=== PATIENT | male | born 1935 | race African-American/Black ===

== ENCOUNTER 2021-08-06 20:52 | Emergency (ER) | payer MEDICARE ==
[~2021-08-06] VITALS: Ht 175.3 cm; Wt 56.8 kg
[~2021-08-06 20:52] MED LIST: ATROVENT HFA17 MCG IN; BACITRACIN1 GM OD; CLOTRIMAZOLE1 % TOP; COUMADIN3 MG PO; COZAAR100 MG PO; DOCUSATE SOD100 MG OR; METOPROL TAR100 MG PO; METOPROLOL50 MG PO; NYSTATIN100000 M3 TOP; OCULAR LUBRICANT OD; PROCTOSOL HC2.5 % TOP; SAW PALMETTO160 M1 OR; VENTOLIN HF1 IN; VENTOLIN HFA IN; ZOCOR20 MG PO
[2021-08-06 21:39] LABS: IMMATURE GRANULOCYTES 0.8 % (0.0-5.0); MEAN CELL VOLUME 81.9 fL CALC (80.0-100.0); MEAN CORPUSCULAR HGB 27.2 pG CALC (26.0-32.0); MEAN CORPUSCULAR HGB CONC 33.2 g/dL CAL (32.0-36.0); NEUT# 5.75 thou/uL (1.82-7.42); RED BLOOD COUNT 4.19 mill/uL (4.70-6.10); RED CELL DISTRI WIDTH 15.8 % (11.5-15.5)
[2021-08-06 21:40] LABS: HEMATOCRIT 34.3 % (39.0-50.0); HEMOGLOBIN 11.4 g/dl (14.0-18.0)
[2021-08-06 21:59] LABS: ALBUMIN 3.5 g/dL (3.2-5.0); ALKALINE PHOSPHATASE 77 u/l (38-126); ANION GAP 11 (6-22 (CALC)); BILIRUBIN, TOTAL 0.9 mg/dL (0.0-1.4); BUN 19 mg/dL (8-23); BUN/CREATININE RATIO 16 (12-20 (CALC)); CARBON DIOXIDE 28 mmol/l (22-30); CHLORIDE 101 mmol/l (95-108); CPK 116 u/l (52-200); CREATININE 1.2 mg/dL (0.7-1.3); GFR 57 ML/MIN (>=60 (CALC)); GFR FOR AFR.AMER. > 60 ML/MIN (>=60 (CALC)); LIPASE 163 u/l (23-300); MAGNESIUM 1.7 mg/dL (1.6-2.3); POTASSIUM 3.7 mmol/l (3.5-5.1); SGOT/AST 18 u/l (19-48); SODIUM 137 mmol/l (137-146); TOTAL PROTEIN 7.1 g/dL (6.3-8.2)
[2021-08-06 22:00] LABS: ACT PARTIAL THROMBO TIME 74.6 SECONDS (20.0-32.5)
[2021-08-06 22:02] LABS: INTERNATIONAL NORMALIZED RATIO 1.5 RATIO (0.7-1.3); PROTHROMBIN TIME 15.8 SECONDS (9.0-12.5)
[2021-08-06 22:03] LABS: URINE BILIRUBIN - DIPSTICK NEGATIVE (NEGATIVE); URINE BLOOD DIPSTICK NEGATIVE (NEGATIVE); URINE COLOR YELLOW; URINE GLUCOSE - DIPSTICK NEGATIVE (NEGATIVE); URINE KETONE NEGATIVE (NEGATIVE); URINE LEUK ESTERASE NEGATIVE (NEGATIVE); URINE PROTEIN - DIPSTICK NEGATIVE (NEG-TRACE); URINE UROBILINOGEN - DIPSTICK 0.2 E.U./dL (0.2)
[2021-08-06 22:05] LABS: URINE NITRITE - DIPSTICK NEGATIVE (Negative)
[2021-08-06] MEDS ORDERED: AMOX/K CLAV875 M1 PO (23:24)
[2021-08-07 09:18] VITALS: BP 176/92
== END 2021-08-07 09:18 | disposition home or self-care (01) ==
LOC: ED 20:52
DX: J18.9 Pneumonia, unspecified organism (principal); M54.6 Pain in thoracic spine; M54.50 Low back pain, unspecified; I69.954 Hemiplegia and hemiparesis following unspecified cerebrovascular disease affecting left non-dominant side; W05.0XXA Fall from non-moving wheelchair, initial encounter; Y92.009 Unspecified place in unspecified non-institutional (private) residence as the place of occurrence of the external cause; Z91.81 History of falling; Z85.46 Personal history of malignant neoplasm of prostate; Z20.822 Contact with and (suspected) exposure to COVID-19

== ENCOUNTER 2022-01-06 18:10 | Inpatient (IN) | payer MEDICARE ==
[~2022-01-06] VITALS: Ht 175.3 cm; Wt 80.0 kg
[2022-01-06] VITALS (18 sets, daily range): BP systolic 138–192; BP diastolic 83–119
[~2022-01-06 18:10] MED LIST changes: +AMOX/K CLAV875 M1 PO
[2022-01-06 18:46] LABS: URINE BLOOD DIPSTICK MODERATE (NEGATIVE); URINE COLOR YELLOW; URINE GLUCOSE - DIPSTICK NEGATIVE (NEGATIVE); URINE KETONE 40 mg/dL (NEGATIVE); URINE LEUK ESTERASE NEGATIVE (NEGATIVE); URINE PH 5.5 (4.5-8.0); URINE PROTEIN - DIPSTICK TRACE mg/dL (NEG-TRACE); URINE SPECIFIC GRAVITY >=1.030; URINE UROBILINOGEN - DIPSTICK 0.2 E.U./dL (0.2)
[2022-01-06 18:46] LABS: IMMATURE GRANULOCYTES 0.4 % (0.0-5.0); MEAN CELL VOLUME 79.5 fL CALC (80.0-100.0); MEAN CORPUSCULAR HGB CONC 33.9 g/dL CAL (32.0-36.0); NEUT# 8.78 thou/uL (1.82-7.42); RED BLOOD COUNT 5.23 mill/uL (4.70-6.10); RED CELL DISTRI WIDTH 17.1 % (11.5-15.5)
[2022-01-06 18:50] LABS: HEMATOCRIT 41.6 % (39.0-50.0); HEMOGLOBIN 14.1 g/dl (14.0-18.0)
[2022-01-06 18:52] LABS: URINE BILIRUBIN - DIPSTICK NEGATIVE (NEGATIVE); URINE NITRITE - DIPSTICK NEGATIVE (Negative)
[2022-01-06 18:56] LABS: ALBUMIN 4.1 g/dL (3.2-5.0); ALKALINE PHOSPHATASE 84 u/l (38-126); BUN 18 mg/dL (8-23); BUN/CREATININE RATIO 18 (12-20 (CALC)); CHLORIDE 106 mmol/l (95-108); CPK 1296 u/l (52-200); GFR > 60 ML/MIN (>=60 (CALC)); GFR FOR AFR.AMER. > 60 ML/MIN (>=60 (CALC)); LIPASE 108 u/l (23-300); POTASSIUM 3.7 mmol/l (3.5-5.1); SODIUM 143 mmol/l (137-146); TOTAL PROTEIN 7.7 g/dL (6.3-8.2)
[2022-01-06 18:57] LABS: ANION GAP 20 (6-22 (CALC)); BILIRUBIN, TOTAL 1.7 mg/dL (0.0-1.4); CARBON DIOXIDE 21 mmol/l (22-30); SGOT/AST 50 u/l (19-48)
[2022-01-06 19:02] LABS: URINE WBC 0-2 WBC/hpf (0-5)
[2022-01-06 19:05] LABS: INTERNATIONAL NORMALIZED RATIO 1.1 RATIO (0.7-1.3); PROTHROMBIN TIME 11.1 SECONDS (9.0-12.5)
[2022-01-06 19:24] LABS: MYOGLOBIN 2499 ng/mL (0 - 121)
[2022-01-07 04:27] VITALS: BP 189/100
[2022-01-07 05:51] LABS: HEMATOCRIT 37.4 % (39.0-50.0); HEMOGLOBIN 12.4 g/dl (14.0-18.0); MEAN CELL VOLUME 80.6 fL CALC (80.0-100.0); MEAN CORPUSCULAR HGB 26.7 pG CALC (26.0-32.0); MEAN CORPUSCULAR HGB CONC 33.2 g/dL CAL (32.0-36.0); RED BLOOD COUNT 4.64 mill/uL (4.70-6.10); RED CELL DISTRI WIDTH 17.2 % (11.5-15.5)
[2022-01-07 06:11] LABS: ANION GAP 12 (6-22 (CALC)); BUN 19 mg/dL (8-23); BUN/CREATININE RATIO 21 (12-20 (CALC)); CARBON DIOXIDE 25 mmol/l (22-30); CHLORIDE 108 mmol/l (95-108); CREATININE 0.9 mg/dL (0.7-1.3); GFR > 60 ML/MIN (>=60 (CALC)); GFR FOR AFR.AMER. > 60 ML/MIN (>=60 (CALC)); POTASSIUM 3.9 mmol/l (3.5-5.1); SODIUM 141 mmol/l (137-146)
[2022-01-07 06:26] LABS: CPK 2924 u/l (52-200)
[2022-01-07 07:13] LABS: INTERNATIONAL NORMALIZED RATIO 1.1 RATIO (0.7-1.3)
[2022-01-07 08:37] VITALS: BP 137/77
[2022-01-07 10:14] VITALS: BP 184/86
[2022-01-07] MEDS ORDERED: D32000 UNIT PO (10:52)
[2022-01-07] MEDS ORDERED: METFORMIN500 M2 PO (10:53)
[2022-01-07] MEDS ORDERED: PRADAXA150 M1 PO (10:54)
[2022-01-07] MEDS ORDERED: TAMSULOSIN HYD0.4 MG PO (10:55)
[2022-01-07] MEDS ORDERED: COMBIVENT RESPIMAT IN (10:56)
[2022-01-07 15:06] VITALS: BP 136/82
[2022-01-07 19:20] VITALS: BP 173/89
[2022-01-08] VITALS (8 sets, daily range): BP systolic 136–186; BP diastolic 67–101
[2022-01-08 05:50] LABS: HEMATOCRIT 36.3 % (39.0-50.0); HEMOGLOBIN 11.8 g/dl (14.0-18.0); IMMATURE GRANULOCYTES 1.7 % (0.0-5.0); MEAN CELL VOLUME 81.8 fL CALC (80.0-100.0); MEAN CORPUSCULAR HGB 26.6 pG CALC (26.0-32.0); MEAN CORPUSCULAR HGB CONC 32.5 g/dL CAL (32.0-36.0); NEUT# 4.43 thou/uL (1.82-7.42); RED BLOOD COUNT 4.44 mill/uL (4.70-6.10); RED CELL DISTRI WIDTH 17.1 % (11.5-15.5)
[2022-01-08 06:25] LABS: BUN 17 mg/dL (8-23); CARBON DIOXIDE 26 mmol/l (22-30); CHLORIDE 109 mmol/l (95-108); CREATININE 0.8 mg/dL (0.7-1.3); GFR > 60 ML/MIN (>=60 (CALC)); GFR FOR AFR.AMER. > 60 ML/MIN (>=60 (CALC)); MAGNESIUM 1.8 mg/dL (1.6-2.3); POTASSIUM 4.2 mmol/l (3.5-5.1); SODIUM 142 mmol/l (137-146)
[2022-01-08 06:34] LABS: ALBUMIN 2.9 g/dL (3.2-5.0); CPK 2642 u/l (52-200)
[2022-01-09 03:48] VITALS: BP 114/61
[2022-01-09 05:54] LABS: HEMOGLOBIN 10.8 g/dl (14.0-18.0); IMMATURE GRANULOCYTES 4.7 % (0.0-5.0); MEAN CELL VOLUME 79.8 fL CALC (80.0-100.0); MEAN CORPUSCULAR HGB 26.9 pG CALC (26.0-32.0); MEAN CORPUSCULAR HGB CONC 33.8 g/dL CAL (32.0-36.0); RED BLOOD COUNT 4.01 mill/uL (4.70-6.10); RED CELL DISTRI WIDTH 16.9 % (11.5-15.5)
[2022-01-09 06:17] LABS: ALBUMIN 2.5 g/dL (3.2-5.0); ALKALINE PHOSPHATASE 51 u/l (38-126); ANION GAP 10 (6-22 (CALC)); BUN 24 mg/dL (8-23); BUN/CREATININE RATIO 24 (12-20 (CALC)); CARBON DIOXIDE 27 mmol/l (22-30); CHLORIDE 106 mmol/l (95-108); CPK 1363 u/l (52-200); GFR > 60 ML/MIN (>=60 (CALC)); GFR FOR AFR.AMER. > 60 ML/MIN (>=60 (CALC)); MAGNESIUM 1.8 mg/dL (1.6-2.3); POTASSIUM 3.6 mmol/l (3.5-5.1); SGOT/AST 45 u/l (19-48); SODIUM 139 mmol/l (137-146)
[2022-01-09 06:20] LABS: BILIRUBIN, TOTAL 0.5 mg/dL (0.0-1.4); TOTAL PROTEIN 4.9 g/dL (6.3-8.2)
[2022-01-09 08:51] VITALS: BP 122/55
== END 2022-01-09 10:56 | DRG 558 ==
LOC: ED 18:10 → ED-I 19:50 → ED 20:12 → MS2 22:00
PROVIDERS: Nurse Practitioner; ADMIT Internal Medicine; ATTEND Internal Medicine
DX: M62.82 Rhabdomyolysis (principal); I69.354 Hemiplegia and hemiparesis following cerebral infarction affecting left non-dominant side; I10 Essential (primary) hypertension; E11.9 Type 2 diabetes mellitus without complications; F03.90 Unspecified dementia, unspecified severity, without behavioral disturbance, psychotic disturbance, mood disturbance, and anxiety; S80.212A Abrasion, left knee, initial encounter; M16.12 Unilateral primary osteoarthritis, left hip; W01.0XXA Fall on same level from slipping, tripping and stumbling without subsequent striking against object, initial encounter; Y92.009 Unspecified place in unspecified non-institutional (private) residence as the place of occurrence of the external cause; Z85.46 Personal history of malignant neoplasm of prostate; Z79.84 Long term (current) use of oral hypoglycemic drugs; Z60.2 Problems related to living alone; Z20.822 Contact with and (suspected) exposure to COVID-19

== ENCOUNTER 2022-03-17 17:47 | Emergency (ER) | payer MEDICARE ==
[~2022-03-17 17:47] MED LIST changes: +COMBIVENT RESPIMAT IN; +D32000 UNIT PO; +METFORMIN500 M2 PO; +PRADAXA150 M1 PO; +TAMSULOSIN HYD0.4 MG PO
[2022-03-17 19:04] VITALS: BP 131/110
== END 2022-03-17 19:50 | disposition expired ==
LOC: ED 17:47
PROC: 5A12012 Performance of Cardiac Output, Single, Manual (ICD-10-PCS; principal; 2022-03-17)
PROC: 0BH17EZ Insertion of Endotracheal Airway into Trachea, Via Natural or Artificial Opening (ICD-10-PCS; 2022-03-17)
PROC: 5A1935Z Respiratory Ventilation, Less than 24 Consecutive Hours (ICD-10-PCS; 2022-03-17)
DX: I46.9 Cardiac arrest, cause unspecified (principal); F03.90 Unspecified dementia, unspecified severity, without behavioral disturbance, psychotic disturbance, mood disturbance, and anxiety; I10 Essential (primary) hypertension; E78.5 Hyperlipidemia, unspecified; Z86.73 Personal history of transient ischemic attack (TIA), and cerebral infarction without residual deficits